=== PATIENT | female | born 1950 | race Caucasian/White ===

== ENCOUNTER 2017-10-30 04:06 | Emergency (ER) | payer MEDICARE ==
[~2017-10-30] VITALS: Ht 165.1 cm; Wt 78.5 kg
[~2017-10-30 04:06] MED LIST: ALLEGRA-D 24 H1 EACH PO; ANTA; ASPIRIN; BUDESONIDE EC3 MG PO; BUPROPION XL300 MG PO; CEFUROXIME500 MG PO; CYANOCOBAL1000 MCG/M IM; CYMBALTA60 MG PO; ESTRADIOL PO; GLIMEPIRIDE2 MG PO; KLOR-CON 1010 MEQ PO; LANTUS100 UNITS/ SQ; LEVAQUIN500 MG PO; LORAZEPAM1 MG PO; LORAZEPAM2 MG PO; MONTELUKAST SOD10 MG PO; NORETHINDRONE PO; PANTOPRAZOLE SO40 MG PO; PREDNISONE5 MG PO; REGLAN10 MG PO; SINGULAIR10 MG PO; TRAMADOL HCL100 MG PO; TRAMADOL-ACETAMI1 EA PO; Z WELLBUTRIN PO; Z.0.CYMBALTA30 MG PO; Z.0.DICYCLOMINE HCL2 PO; Z.0.HYOMAX-SL0.125 M; Z.0.KLOR-CON 1010 ME PO; Z.0.LORAZEPAM1 MG PO; Z.0.PANTOPRAZOLE SO4; Z.0.PANTOPRAZOLE SO4 PO; Z.0.SINGULAIR10 MG; Z.0.SINGULAIR10 MG PO; Z.0.TESSALON PERLE10 PO; [UNRECOGNIZED DRUG - OTHER] PO; [UNRECOGNIZED DRUG - REMARK]
--- OUTSIDE RECORDS SUMMARY | 2017-10-30 04:11 | XMS REPORT ---
Author Author [facility] Address Unknown Phone Unavailable Care Team Providers Care Communications Superintendent Name Role Phone ISABELLA DE JESUS Unavailable Unavailable Problems This patient has no known problems. Allergies, Adverse Reactions, Alerts This patient has no known allergies or adverse reactions. Medications This patient has no known medications. Results Test Description Test Time Test Comments Text Results Atomic Results Result Comments CHEST SINGLE (PORTABLE) [place] [id number] Patient Name: EAMON LAU MR #: [id number] : 1950 Age/Sex: 66/F Req #: [id number] Adm Physician: Ordered by: PALOMO HECTOR Report #: [id number] Location: ER Room/Bed: _ Procedure: [id number] DX/CHEST SINGLE (PORTABLE) Exam Date: 05/05/17 Exam Time: 1700 REPORT STATUS: Signed PROCEDURE: A single AP view of the chest. COMPARISON: Chest radiograph from 2016. INDICATIONS: CHEST PAIN, SOB ON AND OFF FOR WEEKS FINDINGS: Lines/tubes: None. Lungs: The lungs are well inflated. A 1 cm opacity overlies the right upper chest and may represent a lead external to the patient. There is no evidence of pneumonia or pulmonary edema. Pleura: There is no pleural effusion or pneumothorax. Heart and mediastinum: The heart and the mediastinum are unremarkable. Stable mediastinal opacity likely corresponds to the large hiatal hernia noted on CT 07/31/2014. Bones: No acute bony abnormality. IMPRESSION: 1. No acute cardiopulmonary disease. 2. A 1 cm opacity overlying the right upper chest may represent a lead external to the patient. Recommend correlation. 3. Large hiatal hernia. Dictated by: Rosendo Grissom M.D. on 2016 at 17:45 Electronically approved by: Rosendo Grissom M.D. on 2016 at 17:45 Dictated By: ROSENDO GRISSOM MD 44 Transcribed By: LYNNETTE on 05/05/171744 COPY TO: PALOMO HECTOR
[2017-10-30 04:42] LABS: BASOPHILS % 0.8 % (0.0-1.0); HEMATOCRIT 42.9 % (34.2-44.1); LYMPHOCYTES # (AUTO) 1.2 (1.0-3.2); MEAN CORPUSCULAR HEMOGLOBIN 27.3 pg (28-32); MEAN CORPUSCULAR HGB CONC 32.6 g/dL (31-35); MEAN CORPUSCULAR VOLUME 83.8 fL (81-99); MONOCYTES # (AUTO) 0.4 (0.2-0.8); MONOCYTES % 10.6 % (4.4-11.3); NEUTROPHILS # (AUTO) 2.3 (2.1-6.9); NEUTROPHILS % 58.3 % (38.7-80.0); PLATELET COUNT 280 x10e3/uL (140-360); RED BLOOD COUNT 5.12 x10e6/uL (3.6-5.1)
--- NOTE | 2017-10-30 04:58 | Diagnostic Imaging Report ---
EXAMINATION: CHEST SINGLE (PORTABLE) INDICATION: Chest pain COMPARISON: 05/05/2017 FINDINGS: TUBES and LINES: None. LUNGS: Lungs are well inflated. Lungs are clear. There is no evidence of pneumonia or pulmonary edema. PLEURA: No pleural effusion or pneumothorax. HEART AND MEDIASTINUM: The cardiomediastinal silhouette is unremarkable. BONES AND SOFT TISSUES: No acute osseous lesion. Soft tissues are unremarkable. UPPER ABDOMEN: No free air under the diaphragm. IMPRESSION: No acute thoracic abnormality. Signed by: Dr. Esteban Hagna M.D. on 10/30/2017 4:54 AM
[2017-10-30 05:03] LABS: ALANINE AMINOTRANSFERASE 17 IU/L (0-55); ALBUMIN 3.5 g/dL (3.5-5.0); ALBUMIN/GLOBULIN RATIO 1.1 (0.8-2.0); ALKALINE PHOSPHATASE 172 IU/L (40-150); ANION GAP 15.5 mmol/L (8-16); BLOOD UREA NITROGEN < 5 mg/dL (7-26); BUN/CREATININE RATIO 6 (6-25); CALCIUM 9.3 mg/dL (8.4-10.2); CARBON DIOXIDE 22 mmol/L (22-29); CHLORIDE 105 mmol/L (98-107); CREATINE KINASE 68 IU/L (29-168); EST GLOMERULAR FILTRATION RATE > 60 ML/MIN (60-); GLUCOSE 107 mg/dL (74-118); POTASSIUM 3.5 mmol/L (3.5-5.1); SODIUM 139 mmol/L (136-145)
[2017-10-30 05:30] VITALS: BP 117/72
== END 2017-10-30 05:41 | disposition home or self-care (01) ==
LOC: ER 04:10
DX: R07.89 Other chest pain (principal); F41.9 Anxiety disorder, unspecified; K21.9 Gastro-esophageal reflux disease without esophagitis
CPT/HCPCS: 36415; 71045; 80053; 82550; 82553; 84484; 85025; 93005; 99284

== ENCOUNTER 2017-12-24 04:50 | Emergency (ER) | payer MEDICARE ==
[~2017-12-24] VITALS: Ht 165.1 cm; Wt 78.5 kg
--- NOTE | 2017-12-24 06:13 | Diagnostic Imaging Report ---
EXAMINATION: Head CT without contrast. HISTORY:Fall. COMPARISON:CT head from 01/29/2017. TECHNIQUE: Multidetector axial images were obtained from the foramen magnum to the vertex without contrast. The images were reconstructed using brain and bone algorithms. Thin section brain images were reformatted into coronal and sagittal planes. Intravenous contrast: None IMAGE QUALITY: Acceptable. FINDINGS: Skull/scalp: No lytic or blastic. lesions. No surgical changes. Parenchyma: Nonspecific few, scattered supratentorial white matter hypodensity are likely related to small vessel ischemic changes. No acute hemorrhage, mass or acute major vascular territorial infarct. Arteries: No density suggestive of thrombosis. Dural sinuses: No abnormal density suggestive of thrombosis. Ventricles: No hydrocephalus or displacement. Extra-axial spaces: No abnormal density. Brain volume: Mild generalized cerebral volume loss. Craniocervical junction: No mass, Chiari malformation, or basilar invagination. Sella: No mass. Paranasal/mastoid sinuses: Imaged portions unremarkable. IMPRESSION: No acute intracranial abnormality. No change since CT brain from 01/29/2017. Chronic findings: 1. Generalized age-related cerebral volume loss. 2. Mild supratentorial white matter microvascular ischemic changes. Signed by: Dr. Lori Mcknight M.D. on 12/24/2017 6:09 AM
== END 2017-12-24 06:51 | disposition home or self-care (01) ==
LOC: ER 04:50
DX: S00.03XA Contusion of scalp, initial encounter (principal); W01.0XXA Fall on same level from slipping, tripping and stumbling without subsequent striking against object, initial encounter; Y92.008 Other place in unspecified non-institutional (private) residence as the place of occurrence of the external cause; K76.9 Liver disease, unspecified; F41.9 Anxiety disorder, unspecified; F32.9 Major depressive disorder, single episode, unspecified; K21.9 Gastro-esophageal reflux disease without esophagitis
CPT/HCPCS: 70450; 99284

== ENCOUNTER 2018-01-21 22:07 | Emergency (ER) | payer MEDICARE ==
[~2018-01-21] VITALS: Ht 165.1 cm; Wt 78.5 kg
[2018-01-22 02:39] VITALS: BP 125/87
== END 2018-01-22 02:43 | disposition home or self-care (01) ==
LOC: ER 22:07
DX: L03.114 Cellulitis of left upper limb (principal)
CPT/HCPCS: 99282

== ENCOUNTER 2021-12-26 10:15 | Inpatient (IN) | payer MEDICARE ==
[~2021-12-26] VITALS: Ht 165.1 cm; Wt 46.3 kg
[2021-12-26] MEDS ORDERED: SODIUM CHLORIDE 0.9% 500ML 500 ML IV ONE ×2 (10:45→12:15)
[2021-12-26 11:14] LABS: BASOPHILS # (AUTO) 0.1 (0.0-0.1); BASOPHILS % 0.5 % (0.0-1.0); EOSINOPHILS % 0.2 % (0.0-6.0); HEMATOCRIT 39.9 % (34.2-44.1); HEMOGLOBIN 13.3 g/dL (12.0-16.0); LYMPHOCYTES # (AUTO) 1.4 (1.0-3.2); LYMPHOCYTES % 11.2 % (18.0-39.1); MEAN CORPUSCULAR HEMOGLOBIN 30.1 pg (28-32); MEAN CORPUSCULAR HGB CONC 33.3 g/dL (31-35); MEAN CORPUSCULAR VOLUME 90.3 fL (81-99); MONOCYTES # (AUTO) 1.4 (0.2-0.8); MONOCYTES % 11.6 % (4.4-11.3); NEUTROPHILS # (AUTO) 9.3 (2.1-6.9); NEUTROPHILS % 75.9 % (38.7-80.0); PLATELET COUNT 188 x10e3/uL (140-360); RED BLOOD COUNT 4.42 x10e6/uL (3.6-5.1); RED CELL DISTRIBUTION WIDTH 13.6 % (11.7-14.4)
[2021-12-26 11:17] LABS: CLARITY,URINE CLEAR (CLEAR); COLOR,URINE YELLOW (YELLOW); KETONES,URINE NEGATIVE (NEGATIVE); LEUKOCYTE ESTERASE ,URINE NEGATIVE (NEGATIVE); NITRITE,URINE NEGATIVE (NEGATIVE); PROTEIN,URINE DIPSTICK NEGATIVE (NEGATIVE); URINE UROBILINOGEN 0.2 mg/dL (0.2 - 1)
[2021-12-26 11:25] LABS: BACTERIA,URINE FEW /HPF; EPITHELIAL CELLS,URINE FEW /LPF; RBC,URINE 0-5 /HPF (0-5); WBC,URINE (MAN) 0-5 /HPF (0-5)
[2021-12-26 11:31] LABS: INR 1.03; PROTHROMBIN TIME 14.4 seconds (11.9-14.5)
[2021-12-26 11:32] LABS: PARTIAL THROMBOPLASTIN TIME 28.1 seconds (23.8-35.5)
[2021-12-26 11:56] LABS: CREATINE KINASE MB 2.5 ng/mL (0-5.0)
[2021-12-26 12:01] LABS: ALBUMIN 2.8 g/dL (3.5-5.0); ALBUMIN/GLOBULIN RATIO 0.9 (0.8-2.0); CALCIUM 8.1 mg/dL (8.4-10.2); CREATININE, SERUM 1.55 mg/dL (0.57-1.11); MAGNESIUM 1.6 MG/DL (1.3-2.1)
[2021-12-26] MEDS ORDERED: ONDANSETRON HCL INJ 2MG/ML 2ML 2 MG/ML VIAL IV PRN (13:30)
[2021-12-26] MEDS: SODIUM CHLORIDE 0.9% 1000ML 1,000 ML IV SCH ×2 (13:30→21:08)
[2021-12-26] MEDS: FAMOTIDINE 20 MG/2 ML VIAL IV SCH ×2 (13:55→20:16)
[2021-12-26] MEDS ORDERED: DEXTROSE 50% SYRINGE 50 ML IV PRN (15:00)
[2021-12-26] MEDS ORDERED: DOCUSATE SODIUM 100 MG CAP PO PRN (15:00)
[2021-12-26] MEDS ORDERED: HYDRALAZINE HCL 20 MG/ML VIAL IV PRN (15:00)
[2021-12-26] MEDS: INSULIN REGULAR, HUMAN 100 UNIT/1 ML SQ SCH ×2 (16:30→21:00)
[2021-12-26 16:33] LABS: THYROID STIMULATING HORMONE 0.579 uIU/mL (0.350-4.940)
[2021-12-26] MEDS: METOCLOPRAMIDE HCL 10 MG TAB PO SCH ×3 (17:09→20:19)
[2021-12-26] MEDS: PANTOPRAZOLE SOD 40 MG TABEC PO SCH (17:09)
[2021-12-26] MEDS: ENOXAPARIN SOD INJ 40 MG/0.4 ML SYR SC SCH (17:11)
[2021-12-26 19:16] LABS: CREATINE KINASE 66 IU/L (29-168)
[2021-12-26 20:00] VITALS: BP 126/63
[2021-12-26] MEDS: MONTELUKAST SODIUM 10 MG TAB PO SCH ×2 (20:16→20:19)
[2021-12-26] MEDS: ONDANSETRON HCL INJ 2MG/ML 2ML 2 MG/ML VIAL IV PRN ×2 (20:17→20:19)
[2021-12-26] MEDS: GUAIFENESIN/DEXTROMETHORPHAN LIQD 5 ML UDC PO PRN (21:03)
[2021-12-27] VITALS (10 sets, daily range): BP systolic 108–126; BP diastolic 57–90
[2021-12-27] MEDS ORDERED: CLONAZEPAM0.5 MG PO (02:21)
[2021-12-27] MEDS ORDERED: METOPROLOL SUCC25 MG PO (02:21)
[2021-12-27] MEDS: ONDANSETRON HCL INJ 2MG/ML 2ML 2 MG/ML VIAL IV PRN ×2 (04:41→11:51)
[2021-12-27 06:47] LABS: BASOPHILS % 0.4 % (0.0-1.0); EOSINOPHILS % 0.1 % (0.0-6.0); HEMATOCRIT 34.9 % (34.2-44.1); HEMOGLOBIN 11.6 g/dL (12.0-16.0); LYMPHOCYTES % 10.8 % (18.0-39.1); MEAN CORPUSCULAR HEMOGLOBIN 30.2 pg (28-32); MEAN CORPUSCULAR HGB CONC 33.2 g/dL (31-35); MEAN CORPUSCULAR VOLUME 90.9 fL (81-99); MONOCYTES % 10.4 % (4.4-11.3); NEUTROPHILS # (AUTO) 7.3 (2.1-6.9); NEUTROPHILS % 77.8 % (38.7-80.0); PLATELET COUNT 148 x10e3/uL (140-360); RED BLOOD COUNT 3.84 x10e6/uL (3.6-5.1); RED CELL DISTRIBUTION WIDTH 13.3 % (11.7-14.4)
[2021-12-27 07:30] LABS: ALBUMIN 2.2 g/dL (3.5-5.0); ALBUMIN/GLOBULIN RATIO 0.8 (0.8-2.0); ANION GAP 11.6 mmol/L (8-16); CALCIUM 7.4 mg/dL (8.4-10.2); CHOL/HDL RATIO 3.1 (3.0-3.6); CREATININE, SERUM 1.3 mg/dL (0.57-1.11); POTASSIUM 3.6 mmol/L (3.5-5.1)
[2021-12-27] MEDS: INSULIN REGULAR, HUMAN 100 UNIT/1 ML SQ SCH ×4 (07:30→20:56)
[2021-12-27 07:48] LABS: CREATINE KINASE 47 IU/L (29-168)
[2021-12-27] MEDS: FAMOTIDINE 20 MG/2 ML VIAL IV SCH ×2 (09:00→20:56)
[2021-12-27] MEDS ORDERED: NON-FORMULARY MEDICATION (Bupropion Hcl (Bupropion Xl) 300 MG) PO SCH (09:00)
[2021-12-27] MEDS: MULTIVITAMINS/MINERALS TAB PO SCH (09:50)
[2021-12-27] MEDS: METOCLOPRAMIDE HCL 10 MG TAB PO SCH ×4 (09:50→20:56)
[2021-12-27] MEDS: PANTOPRAZOLE SOD 40 MG TABEC PO SCH ×2 (09:51→17:15)
[2021-12-27] MEDS: BUPROPION HCL 150 MG TABCR PO SCH (09:51)
[2021-12-27] MEDS: DULOXETINE HCL 30 MG DELAYED RELEASE PO SCH (09:52)
[2021-12-27] MEDS ORDERED: SODIUM CHLORIDE 0.9% 250ML 250 ML ONE (12:10)
[2021-12-27 15:16] LABS: CREATINE KINASE 55 IU/L (29-168)
[2021-12-27] MEDS: ENOXAPARIN SOD INJ 40 MG/0.4 ML SYR SC SCH (17:15)
[2021-12-27] MEDS: MONTELUKAST SODIUM 10 MG TAB PO SCH (20:55)
[2021-12-27] MEDS: GUAIFENESIN/DEXTROMETHORPHAN LIQD 5 ML UDC PO PRN (20:55)
[2021-12-27] MEDS ORDERED: Vancomycin IV 1 GM in SODIUM CHLORIDE 0.9% 250ML 250 ML IV ONE (22:00)
[2021-12-28] VITALS (8 sets, daily range): BP systolic 112–149; BP diastolic 59–75
[2021-12-28] MEDS: INSULIN REGULAR, HUMAN 100 UNIT/1 ML SQ SCH ×4 (07:30→20:27)
[2021-12-28] MEDS: BUPROPION HCL 150 MG TABCR PO SCH (10:24)
[2021-12-28] MEDS: MULTIVITAMINS/MINERALS TAB PO SCH (10:24)
[2021-12-28] MEDS: PANTOPRAZOLE SOD 40 MG TABEC PO SCH ×2 (10:24→17:00)
[2021-12-28] MEDS: DULOXETINE HCL 30 MG DELAYED RELEASE PO SCH (10:24)
[2021-12-28] MEDS: METOCLOPRAMIDE HCL 10 MG TAB PO SCH ×4 (10:25→20:22)
[2021-12-28] MEDS: FAMOTIDINE 20 MG/2 ML VIAL IV SCH ×2 (10:25→20:26)
[2021-12-28] MEDS: ENOXAPARIN SOD INJ 40 MG/0.4 ML SYR SC SCH (17:00)
[2021-12-28] MEDS: MONTELUKAST SODIUM 10 MG TAB PO SCH (20:22)
[2021-12-29 00:09] VITALS: BP 115/55
[2021-12-29 04:00] VITALS: BP 115/67
[2021-12-29 06:09] LABS: ANION GAP 13.9 mmol/L (8-16); CALCIUM 7.7 mg/dL (8.4-10.2); CREATININE, SERUM 0.64 mg/dL (0.57-1.11); MAGNESIUM 1.7 MG/DL (1.3-2.1)
[2021-12-29 06:15] LABS: POTASSIUM 2.9 mmol/L (3.5-5.1)
[2021-12-29] MEDS ORDERED: POTASSIUM CHLORIDE 20 MEQ TAB CR PO ONE (07:00)
[2021-12-29] MEDS: METOCLOPRAMIDE HCL 10 MG TAB PO SCH ×4 (07:30→21:52)
[2021-12-29] MEDS: INSULIN REGULAR, HUMAN 100 UNIT/1 ML SQ SCH ×4 (07:30→21:00)
[2021-12-29 08:16] VITALS: BP 125/62
[2021-12-29] MEDS: MULTIVITAMINS/MINERALS TAB PO SCH (09:09)
[2021-12-29] MEDS: BUPROPION HCL 150 MG TABCR PO SCH (09:09)
[2021-12-29] MEDS: DULOXETINE HCL 30 MG DELAYED RELEASE PO SCH (09:10)
[2021-12-29] MEDS: FAMOTIDINE 20 MG/2 ML VIAL IV SCH (09:10)
[2021-12-29] MEDS: PANTOPRAZOLE SOD 40 MG TABEC PO SCH ×2 (09:10→16:09)
[2021-12-29 11:57] VITALS: BP 134/76
[2021-12-29 15:58] VITALS: BP 138/75
[2021-12-29] MEDS: ENOXAPARIN SOD INJ 40 MG/0.4 ML SYR SC SCH (16:09)
[2021-12-29] MEDS ORDERED: POTASSIUM CHLORIDE 20MEQ/100ML 100 ML IV ONE (18:45)
[2021-12-29] MEDS: DOCUSATE SODIUM 100 MG CAP PO SCH (18:45)
[2021-12-29 20:00] VITALS: BP 138/85
[2021-12-29] MEDS ORDERED: SODIUM CHLORIDE 0.9% 250ML 250 ML ONE (20:06)
[2021-12-29] MEDS: TRAMADOL HCL 50 MG TAB PO PRN (21:52)
[2021-12-29] MEDS: MONTELUKAST SODIUM 10 MG TAB PO SCH (21:52)
[2021-12-29] MEDS ORDERED: ASPIRIN EC81 MG PO (23:20)
[2021-12-29] MEDS ORDERED: ZYPREXA5 MG SL (23:20)
[2021-12-30] VITALS (8 sets, daily range): BP systolic 135–155; BP diastolic 79–92
[2021-12-30] MEDS: METOCLOPRAMIDE HCL 10 MG TAB PO SCH ×5 (07:30→20:57)
[2021-12-30] MEDS: PANTOPRAZOLE SOD 40 MG TABEC PO SCH ×2 (09:18→16:52)
[2021-12-30] MEDS: DULOXETINE HCL 30 MG DELAYED RELEASE PO SCH (09:18)
[2021-12-30] MEDS: MULTIVITAMINS/MINERALS TAB PO SCH (09:18)
[2021-12-30] MEDS: DOCUSATE SODIUM 100 MG CAP PO SCH ×2 (09:18→16:52)
[2021-12-30] MEDS: BUPROPION HCL 150 MG TABCR PO SCH (09:19)
[2021-12-30] MEDS: INSULIN REGULAR, HUMAN 100 UNIT/1 ML SQ SCH ×4 (10:11→21:00)
[2021-12-30] MEDS: AZITHROMYCIN 250 MG TAB PO SCH (12:08)
[2021-12-30] MEDS: MAGNESIUM HYDROXIDE 30 ML UDC PO PRN (12:09)
[2021-12-30] MEDS ORDERED: MAGNESIUM HYDROXIDE 30 ML UDC PO ONE (12:45)
[2021-12-30] MEDS: TRAMADOL HCL 50 MG TAB PO PRN ×2 (13:29→20:58)
[2021-12-30] MEDS: ONDANSETRON HCL INJ 2MG/ML 2ML 2 MG/ML VIAL IV PRN (16:27)
[2021-12-30] MEDS: ENOXAPARIN SOD INJ 40 MG/0.4 ML SYR SC SCH (16:52)
[2021-12-30] MEDS: MONTELUKAST SODIUM 10 MG TAB PO SCH (20:57)
[2021-12-31] VITALS (8 sets, daily range): BP systolic 117–140; BP diastolic 74–99
[2021-12-31] MEDS: DULOXETINE HCL 30 MG DELAYED RELEASE PO SCH (08:37)
[2021-12-31] MEDS: MAGNESIUM HYDROXIDE 30 ML UDC PO PRN (08:37)
[2021-12-31] MEDS: MULTIVITAMINS/MINERALS TAB PO SCH (08:38)
[2021-12-31] MEDS: BUPROPION HCL 150 MG TABCR PO SCH (08:38)
[2021-12-31] MEDS: PANTOPRAZOLE SOD 40 MG TABEC PO SCH ×2 (08:38→17:43)
[2021-12-31] MEDS: POLYETHYLENE GLYCOL 3350 17 GM PACK PO SCH (08:38)
[2021-12-31] MEDS: DOCUSATE SODIUM 100 MG CAP PO SCH ×2 (08:38→17:43)
[2021-12-31] MEDS: METOCLOPRAMIDE HCL 10 MG TAB PO SCH ×4 (08:38→20:46)
[2021-12-31] MEDS: INSULIN REGULAR, HUMAN 100 UNIT/1 ML SQ SCH ×4 (08:39→20:50)
[2021-12-31] MEDS: AZITHROMYCIN 250 MG TAB PO SCH (11:57)
[2021-12-31] MEDS: ONDANSETRON HCL INJ 2MG/ML 2ML 2 MG/ML VIAL IV PRN (12:01)
[2021-12-31] MEDS: ENOXAPARIN SOD INJ 40 MG/0.4 ML SYR SC SCH (17:43)
[2021-12-31] MEDS: MONTELUKAST SODIUM 10 MG TAB PO SCH (20:46)
[2021-12-31] MEDS ORDERED: MIRTAZAPINE 15 MG TAB PO SCH (21:00)
[2022-01-01 01:28] VITALS: BP 128/65
[2022-01-01 04:00] VITALS: BP 143/85
[2022-01-01 07:10] LABS: ALBUMIN 2.6 g/dL (3.5-5.0); ALBUMIN/GLOBULIN RATIO 0.8 (0.8-2.0); ANION GAP 16.1 mmol/L (8-16); CALCIUM 8.4 mg/dL (8.4-10.2); CREATININE, SERUM 0.82 mg/dL (0.57-1.11); MAGNESIUM 2.1 MG/DL (1.3-2.1); PHOSPHORUS 2.8 MG/DL (2.3-4.7); POTASSIUM 4.1 mmol/L (3.5-5.1)
[2022-01-01] MEDS: INSULIN REGULAR, HUMAN 100 UNIT/1 ML SQ SCH ×2 (07:30→11:57)
[2022-01-01 08:29] VITALS: BP 118/64
[2022-01-01] MEDS: PANTOPRAZOLE SOD 40 MG TABEC PO SCH (09:23)
[2022-01-01] MEDS: DOCUSATE SODIUM 100 MG CAP PO SCH (09:23)
[2022-01-01] MEDS: METOCLOPRAMIDE HCL 10 MG TAB PO SCH ×2 (09:24→11:52)
[2022-01-01] MEDS: DULOXETINE HCL 30 MG DELAYED RELEASE PO SCH (09:24)
[2022-01-01] MEDS: MULTIVITAMINS/MINERALS TAB PO SCH (09:24)
[2022-01-01] MEDS: POLYETHYLENE GLYCOL 3350 17 GM PACK PO SCH (09:24)
[2022-01-01 09:33] VITALS: BP 118/64
[2022-01-01] MEDS ORDERED: DOCUSATE SODIU100 MG PO (10:57)
[2022-01-01] MEDS ORDERED: MULTIVITAMINS1 EAC6 PO (10:57)
[2022-01-01] MEDS ORDERED: MIRTAZAPINE15 MG PO (10:57)
[2022-01-01] MEDS: AZITHROMYCIN 250 MG TAB PO SCH (11:52)
[2022-01-01 13:35] VITALS: BP 119/62
== END 2022-01-01 13:51 | DRG 194 ==
LOC: ER 10:32 → ERHOLD 13:25 → MED/SURG3 19:30 → MED/SURG2 12-29 14:33
PROVIDERS: ADMIT Internal Medicine Critical Care Medicine; ATTEND Internal Medicine Critical Care Medicine
DX: J18.9 Pneumonia, unspecified organism (principal); N17.9 Acute kidney failure, unspecified; E86.0 Dehydration; R62.7 Adult failure to thrive; E78.5 Hyperlipidemia, unspecified; F41.9 Anxiety disorder, unspecified; K21.9 Gastro-esophageal reflux disease without esophagitis; I10 Essential (primary) hypertension; E11.9 Type 2 diabetes mellitus without complications; I25.10 Atherosclerotic heart disease of native coronary artery without angina pectoris; Z20.822 Contact with and (suspected) exposure to COVID-19; K59.00 Constipation, unspecified; N32.89 Other specified disorders of bladder; R33.9 Retention of urine, unspecified; Z91.041 Radiographic dye allergy status; Z88.5 Allergy status to narcotic agent; Z88.7 Allergy status to serum and vaccine; Z91.018 Allergy to other foods
CPT/HCPCS: 36415; 70450; 71045; 74018; 80048; 80053; 80061; 81001; 82550; 82553; 82948; 83735; 83880; 84100; 84443; 84484; 85025; 85610; 85651; 85730; 87040; 87071; 87086; 87205; 93005; 94799; 97139; 99284; J0456; J0696; J1650; J1817; J2405; J3370; J3480; J7030; J7040; J7050

== ENCOUNTER 2022-01-02 14:30 | Emergency (ER) | payer MEDICARE ==
[~2022-01-02] VITALS: Ht 167.6 cm; Wt 64.0 kg
[~2022-01-02 14:30] MED LIST changes: +ASPIRIN EC81 MG PO; +CLONAZEPAM0.5 MG PO; +DOCUSATE SODIU100 MG PO; +METOPROLOL SUCC25 MG PO; +MIRTAZAPINE15 MG PO; +MULTIVITAMINS1 EAC6 PO; +ZYPREXA5 MG SL
[2022-01-02 15:11] LABS: BASOPHILS # (AUTO) 0.1 (0.0-0.1); BASOPHILS % 0.5 % (0.0-1.0); EOSINOPHILS # (AUTO) 0.2 (0.0-0.4); HEMATOCRIT 41.2 % (34.2-44.1); LYMPHOCYTES # (AUTO) 1.7 (1.0-3.2); LYMPHOCYTES % 18.3 % (18.0-39.1); MEAN CORPUSCULAR HEMOGLOBIN 29.5 pg (28-32); MEAN CORPUSCULAR HGB CONC 31.6 g/dL (31-35); MEAN CORPUSCULAR VOLUME 93.4 fL (81-99); MONOCYTES % 10.5 % (4.4-11.3); NEUTROPHILS # (AUTO) 6.4 (2.1-6.9); NEUTROPHILS % 68.3 % (38.7-80.0); PLATELET COUNT 284 x10e3/uL (140-360); RED BLOOD COUNT 4.41 x10e6/uL (3.6-5.1); RED CELL DISTRIBUTION WIDTH 13.6 % (11.7-14.4)
[2022-01-02 15:12] LABS: CLARITY,URINE CLOUDY (CLEAR); COLOR,URINE STRAW (YELLOW); KETONES,URINE 1+ (NEGATIVE); LEUKOCYTE ESTERASE ,URINE MODERATE (NEGATIVE); NITRITE,URINE NEGATIVE (NEGATIVE); PROTEIN,URINE DIPSTICK 1+ (NEGATIVE); URINE UROBILINOGEN 0.2 mg/dL (0.2 - 1)
[2022-01-02 15:28] LABS: BACTERIA,URINE MANY /HPF; EPITHELIAL CELLS,URINE FEW /LPF; WBC,URINE (MAN) 21-50 /HPF (0-5); YEAST,URINE MODERATE
[2022-01-02 15:35] LABS: ALBUMIN 2.7 g/dL (3.5-5.0); ALBUMIN/GLOBULIN RATIO 0.8 (0.8-2.0); ANION GAP 13.6 mmol/L (8-16); CALCIUM 8.2 mg/dL (8.4-10.2); CREATININE, SERUM 0.72 mg/dL (0.57-1.11); POTASSIUM 3.6 mmol/L (3.5-5.1)
== END 2022-01-02 18:25 ==
LOC: ER 14:36
DX: R41.0 Disorientation, unspecified (principal); I10 Essential (primary) hypertension; E11.9 Type 2 diabetes mellitus without complications; E78.5 Hyperlipidemia, unspecified; M54.9 Dorsalgia, unspecified; G89.29 Other chronic pain; Z20.822 Contact with and (suspected) exposure to COVID-19
CPT/HCPCS: 36415; 70450; 71045; 80053; 81001; 84484; 85025; 87086; 93005; 99284; U0002